=== PATIENT | male | born 2000 | race Caucasian/White ===

== ENCOUNTER → 2024-12-04 | Outpatient (CLI) | payer OTHER, SELFPAY ==
[2024-12-04 11:17] LABS: Syphilis Nonreactive (Nonreactive)
[2024-12-04 14:59] LABS: Chlamydia trachomatis PCR Negative (Not Detect); Neisseria Gonorrhoeae DNA PCR Negative (Not Detect); Trichomonas Negative (Negative)
[2024-12-04 16:20] LABS: HIV (1&2) Antibody Rapid Non-Reactive
[2024-12-09 19:48] LABS: HSV1 IgG Type Specific Ab 50.50 INDEX
[2024-12-10 06:20] LABS: HSV2 IgG Type Specific Ab 4.48 INDEX
== END | disposition home or self-care (01) ==
LOC: COPL 09:07
PROVIDERS: PCP Family Medicine; Referring Provider Family Medicine; Visit Provider Family Medicine
DX: Z11.3 Encounter for screening for infections with a predominantly sexual mode of transmission (principal)
CPT/HCPCS: 36415; 86695; 86696; 86703; 86780; 87491; 87591; 87661